=== PATIENT | male | born 1985 | race Caucasian/White ===

== ENCOUNTER 2020-05-27 21:45 | Emergency (ER) | payer OTHER ==
[~2020-05-27] VITALS: Ht 182.9 cm; Wt 104.3 kg
[2020-05-27] MEDS ORDERED: IBUPROFEN 800800 MG PO (22:36)
[2020-05-27 23:25] VITALS: BP 130/72
== END 2020-05-27 23:26 | disposition home or self-care (01) ==
LOC: ER 21:45
DX: M25.511 Pain in right shoulder (principal)

== ENCOUNTER 2020-07-30 01:57 | Emergency (ER) | payer OTHER ==
[~2020-07-30] VITALS: Ht 182.9 cm; Wt 149.7 kg
[~2020-07-30 01:57] MED LIST: IBUPROFEN 800800 MG PO
[2020-07-30 05:31] LABS: URINE BILIRUBIN NEGATIVE (Negative); URINE BLOOD TRACE (Negative); URINE CLARITY CLEAR; URINE COLOR YELLOW; URINE GLUCOSE-RANDOM* NEGATIVE (Negative); URINE KETONES NEGATIVE (Negative); URINE LEUKOCYTES-REFLEX NEGATIVE (Negative); URINE NITRITE-REFLEX NEGATIVE (Negative); URINE PROTEIN (DIPSTICK) NEGATIVE (Negative); URINE SPECIFIC GRAVITY 1.025 (1.005-1.035); URINE UROBILINOGEN 0.2 E.U./dl (0.2-1.0)
[2020-07-30 05:39] LABS: AMP/METHAMP Negative (Negative); BARBITURATES Negative (Negative); BENZODIAZEPINES Negative (Negative); COCAINE Negative (Negative); METHADONE Negative (Negative); OPIATES Negative (Negative); PCP Negative (Negative)
[2020-07-30] MEDS ORDERED: DEPAKOTE500 MG PO (05:49)
[2020-07-30] MEDS ORDERED: INVEGA SUS234 MG/1.5 PO (05:59)
[2020-07-30] MEDS ORDERED: PROAIR HFA8.5 GM INH (06:01)
[2020-07-30] MEDS ORDERED: CLARITIN10 MG PO (06:02)
[2020-07-30] MEDS ORDERED: LISINOPRIL10 MG PO (06:02)
[2020-07-30] MEDS ORDERED: COLACE100 MG PO (06:03)
[2020-07-30] MEDS ORDERED: CLONAZEPAM 0.50.5 M1 PO (06:03)
[2020-07-30] MEDS ORDERED: LIPITOR 20 MG T20 M1 PO (06:04)
[2020-07-30] MEDS ORDERED: MINIPRESS2 MG PO (06:05)
[2020-07-30 06:07] LABS: ABSOLUTE NEUTROPHILS 4.2 thou/uL (1.4-8.2); BASOPHILS 0.8 % (0.0-2.0); EOSINOPHILS 3.5 % (0.0-3.0); HEMATOCRIT 39.1 % (42.0-52.0); HEMOGLOBIN 13.2 gm/dL (14.0-18.0); LYMPHOCYTES 38.8 % (24.0-44.0); MCH 31.9 pg (26.0-34.0); MCHC 33.7 g/dL (28.0-37.0); MCV 94.9 fL (80.0-100.0); MONOCYTES 7.6 % (1.0-8.0); PLATELET COUNT 181 thou/uL (150-400); POLYS 49.3 % (36.0-66.0); RBC 4.12 mil/uL (4.50-6.00); RDW 13.4 % (10.5-14.5); WBC 8.6 thou/uL (4.0-11.0)
[2020-07-30 06:15] LABS: CALCIUM 8.5 mg/dL (8.5-10.1); CREATININE 1.1 mg/dL (0.7-1.3); POTASSIUM 4.5 mmol/L (3.5-5.1)
[2020-07-30 06:21] LABS: ALBUMIN 3.3 g/dL (3.4-5.0); TOTAL BILIRUBIN 0.2 mg/dL (0.2-1.0); TOTAL PROTEIN 6.4 g/dL (6.4-8.2)
[2020-07-31 09:48] VITALS: BP 155/91
--- NOTE | 2020-07-31 11:04 | EKG ---
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
== END 2020-07-31 09:42 | disposition short-term general hospital (02) ==
LOC: ER 01:57
PROVIDERS: Emergency Medicine
DX: R45.851 Suicidal ideations (principal); Z79.1 Long term (current) use of non-steroidal anti-inflammatories (NSAID); Z79.899 Other long term (current) drug therapy; Z91.041 Radiographic dye allergy status; Z91.013 Allergy to seafood; Z20.822 Contact with and (suspected) exposure to COVID-19

== ENCOUNTER 2020-10-21 16:37 | Emergency (ER) | payer OTHER ==
[~2020-10-21] VITALS: Ht 182.9 cm; Wt 107.0 kg
[~2020-10-21 16:37] MED LIST changes: +CLARITIN10 MG PO; +CLONAZEPAM 0.50.5 M1 PO; +COLACE100 MG PO; +DEPAKOTE500 MG PO; +INVEGA SUS234 MG/1.5 PO; +LIPITOR 20 MG T20 M1 PO; +LISINOPRIL10 MG PO; +MINIPRESS2 MG PO; +PROAIR HFA8.5 GM INH
[2020-10-21] MEDS ORDERED: PROZAC20 M1 PO (16:56)
[2020-10-21] MEDS ORDERED: GEMTESA75 MG PO (16:57)
[2020-10-21] MEDS ORDERED: HALOPERIDOL 5 MG5 MG PO (16:57)
[2020-10-21] MEDS ORDERED: INVEGA SUS234 MG/1.5 IM (16:58)
[2020-10-21] MEDS ORDERED: METFORMIN HCL500 M3 PO (16:59)
[2020-10-21] MEDS ORDERED: DESYREL150 MG PO (16:59)
[2020-10-21 17:11] LABS: URINE BILIRUBIN NEGATIVE (Negative); URINE BLOOD TRACE (Negative); URINE CLARITY CLEAR; URINE COLOR YELLOW; URINE GLUCOSE-RANDOM* 2+ (Negative); URINE KETONES NEGATIVE (Negative); URINE LEUKOCYTES-REFLEX NEGATIVE (Negative); URINE NITRITE-REFLEX NEGATIVE (Negative); URINE PROTEIN (DIPSTICK) NEGATIVE (Negative); URINE SPECIFIC GRAVITY <= 1.005 (1.005-1.035); URINE UROBILINOGEN 0.2 E.U./dl (0.2-1.0)
[2020-10-21 17:41] LABS: BASOPHILS 0.6 % (0.0-2.0); EOSINOPHILS 3.4 % (0.0-3.0); HEMATOCRIT 40.1 % (42.0-52.0); HEMOGLOBIN 13.7 gm/dL (14.0-18.0); LYMPHOCYTES 25.6 % (24.0-44.0); MCH 31.9 pg (26.0-34.0); MCHC 34.2 g/dL (28.0-37.0); MCV 93.3 fL (80.0-100.0); MONOCYTES 8.9 % (1.0-8.0); PLATELET COUNT 166 thou/uL (150-400); POLYS 61.5 % (36.0-66.0); RDW 13.3 % (10.5-14.5); WBC 8.1 thou/uL (4.0-11.0)
[2020-10-21 17:49] LABS: CALCIUM 8.5 mg/dL (8.5-10.1); CREATININE 1.3 mg/dL (0.7-1.3); POTASSIUM 4.6 mmol/L (3.5-5.1)
[2020-10-21 17:55] LABS: ALBUMIN 3.2 g/dL (3.4-5.0); TOTAL BILIRUBIN 0.2 mg/dL (0.2-1.0); TOTAL PROTEIN 6.5 g/dL (6.4-8.2)
[2020-10-21 19:28] LABS: SALICYLATE < 2.8 mg/dL (2.8-20.0)
[2020-10-22 09:40] VITALS: BP 131/94
--- NOTE | 2020-10-22 09:52 | EKG ---
[place] [address] [facility] [place] [address] ELECTROCARDIOGRAM REPORT [facility]: 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 : 1985 Requested By: Pancho Edouard Order Number: [id number] MD: Kris Griffin Measurements Intervals [place] Rate: 80 P: 56 PA: 147 QRS: 38 QRSD: 86 T: 6 QT: 389 QTc: 449 Interpretive Statements Sinus rhythm Borderline T abnormalities, anterior leads Compared to ECG 07/30/2020 06:55:52 T-wave abnormality now present Sinus tachycardia no longer present Electronically Signed On 10-22-2020 9:52:29 CDT by Kris Griffin [email or web address] <ELECTRONICALLY SIGNED> By: Kris Griffin MD, [facility] 10/22/20 0952 [id number] Kris Griffin MD, FACC /EPI
== END 2020-10-22 09:45 ==
LOC: ER 16:37
PROVIDERS: Nurse Practitioner Family
DX: R11.2 Nausea with vomiting, unspecified (principal); Z20.822 Contact with and (suspected) exposure to COVID-19; R10.817 Generalized abdominal tenderness; R45.850 Homicidal ideations; E11.9 Type 2 diabetes mellitus without complications; Z88.0 Allergy status to penicillin; Z91.013 Allergy to seafood